=== PATIENT | male | born 1935 | race Two or more races ===

== ENCOUNTER 2024-12-01 04:53 | Inpatient (IN) | payer MEDICARE, OTHER ==
[~2024-12-01] VITALS: Ht 185.4 cm; Wt 84.4 kg
[2024-12-01] VITALS (23 sets, daily range): BP systolic 118–147; BP diastolic 51–78; TEMP 97–98; O2SAT 95–100
[~2024-12-01 04:53] MED LIST: COLC0.6T67 PO
[2024-12-01 05:29] LABS: PLATELET COUNT (AUTO) 304 K/uL (150-450); RED BLOOD CELL COUNT(AUTO) 2.77 MIL/uL (4.5-6.0); RED CELL DISTRIBUTION WIDTH 16.9 % (11.5-15.0); WHITE BLOOD COUNT (AUTO) 13.9 K/uL (4.3-11.0)
[2024-12-01 05:37] LABS: CALCIUM, SERUM 8.6 mg/dL (8.5-10.1); CREATININE 6.8 mg/dL (0.6-1.3); SODIUM SERUM 137.0 mmol/L (136-145); UREA NITROGEN, BLOOD 45.0 mg/dL (7-18)
[2024-12-01 05:44] LABS: ABG BASE EXCESS -0.8 mmol/L (-2.0-3.0); ABG OXYGEN SATURATION 95.1 % (94.0-98.0); ABG PCO2 75.3 mmHg (35.0-48.0); ABG PH 7.193 (7.350-7.450); ABG PO2 100.5 mmHg (83.0-108.0); ABG TOTAL HEMOGLOBIN 9.5 G/dL (13.5-17.5); FLOW, BLOOD GAS 15.00 L/min (0.00-30.00); FRACTIONATED INSPIRED OXYGEN 100.0 %; SITE, ABG LEFT RADIAL
[2024-12-01 05:49] LABS: ASPARTATE AMINOTRANSFERASE 17.0 U/L (15-37); NT-PRO BNP 20495.0 pg/mL (0-125); TOTAL PROTEIN, SERUM 8.2 g/dL (6.4-8.2)
[2024-12-01] MEDS ORDERED: ZOLPIDEM TARTRATE 5 MG TABLET PO PRN (08:00)
[2024-12-01] MEDS ORDERED: MAG HYDROX/AL HYDROX/SIMETH 30 ML UDC PO PRN (08:00)
[2024-12-01] MEDS ORDERED: Z GUARD REMEDY 4 OZ OINT TP PRN (08:00)
[2024-12-01] MEDS ORDERED: MAGNESIUM HYDROXIDE 30 ML UDC PO PRN (08:00)
[2024-12-01] MEDS ORDERED: ONDANSETRON HCL/PF 4 MG/2 ML VIAL IVP PRN (08:00)
[2024-12-01] MEDS ORDERED: ACETAMINOPHEN 325 MG TABLET PO PRN (08:00)
[2024-12-01] MEDS ORDERED: CEFEPIME 1 GM VIAL IM SCH (10:00)
[2024-12-01] MEDS ORDERED: DOSING PER PHARMACY-VANCOMYCIN IV XX PRN (10:00)
[2024-12-01 10:22] LABS: ABG BASE EXCESS 3.5 mmol/L (-2.0-3.0); ABG OXYGEN SATURATION 98.1 % (94.0-98.0); ABG PCO2 50.6 mmHg (35.0-48.0); ABG PH 7.379 (7.350-7.450); ABG PO2 141.7 mmHg (83.0-108.0); ABG TOTAL HEMOGLOBIN 8.3 G/dL (13.5-17.5); SET RATE, BG 18.0; SITE, ABG LEFT RADIAL
[2024-12-01] MEDS: VANCOMYCIN 1 GM in IV D5W 250 ML IV ONE (10:57)
[2024-12-01] MEDS: PANTOPRAZOLE 40 MG VIAL IV SCH (10:57)
[2024-12-01] MEDS ORDERED: XPHOZAH PO (11:34)
[2024-12-01] MEDS ORDERED: LINA290C PO (11:34)
[2024-12-01] MEDS ORDERED: LEVO50TA PO (11:34)
[2024-12-01] MEDS ORDERED: DEXL60CA3 PO (11:34)
[2024-12-01] MEDS ORDERED: AMYL1CAP58 PO (11:34)
[2024-12-01] MEDS ORDERED: ZINC10LO5 PO (11:35)
[2024-12-01] MEDS ORDERED: POLY17PO4 PO (11:35)
[2024-12-01] MEDS ORDERED: TIMO5DRO18 EACHEYE (11:35)
[2024-12-01] MEDS ORDERED: VIT1CAPS9 PO (11:35)
[2024-12-01] MEDS ORDERED: ROSU5TAB PO (11:35)
[2024-12-01] MEDS ORDERED: MAGN400O21 PO (11:35)
[2024-12-01] MEDS ORDERED: FINA5TAB3 PO (11:35)
[2024-12-01] MEDS ORDERED: AMLO-212 PO (11:35)
[2024-12-01] MEDS ORDERED: ESCI10TA PO (11:35)
[2024-12-01] MEDS ORDERED: AMIO200T5 PO (11:35)
[2024-12-01] MEDS ORDERED: FOLI0.8T2 PO (11:35)
[2024-12-01] MEDS ORDERED: SENN-261 PO (11:35)
[2024-12-01] MEDS ORDERED: ICOS1CAP PO (11:35)
[2024-12-01] MEDS ORDERED: FLUT16SP16 BNOSTRILS (11:35)
[2024-12-01] MEDS ORDERED: CHOL200059 PO (11:35)
[2024-12-01] MEDS ORDERED: FAMO20TA8 PO (11:35)
[2024-12-01] MEDS ORDERED: AZIL40TA PO (11:35)
[2024-12-01] MEDS ORDERED: FEBU40TA3 PO (11:35)
[2024-12-01] MEDS ORDERED: ONDA8TAB13 SL (11:35)
[2024-12-01] MEDS ORDERED: AZEL137S7 BNOSTRILS (11:35)
[2024-12-01] MEDS ORDERED: CYCL5.5D EACHEYE (11:35)
[2024-12-01] MEDS: CEFEPIME 1 GM in IV D5W 50 ML IV SCH (12:23)
[2024-12-01] MEDS ORDERED: ONDANSETRON 8 MG SL PRN (16:30)
[2024-12-01] MEDS ORDERED: LIPASE/PROTEASE/AMYLASE 1 EACH CAPSULE.DR PO SCH (16:30)
[2024-12-01] MEDS ORDERED: Medication Not On Formulary EA (Febuxostat 40 MG) PO SCH (16:30)
[2024-12-01] MEDS ORDERED: XPHOZAH PO SCH (16:30)
[2024-12-01] MEDS ORDERED: Medication Not On Formulary EA (Cyclosporine (Restasis Multidose) 1 DROP) EACHEYE SCH (17:00)
[2024-12-01] MEDS: VIT B CMPLX 3/FA/VIT C/BIOTIN 1 TAB TABLET PO SCH (17:10)
[2024-12-01] MEDS: AMIODARONE HCL 200 MG TABLET PO SCH (17:10)
[2024-12-01] MEDS: CHOLECALCIFEROL 1,000 UNIT TABLET (VIT D3) PO SCH (17:10)
[2024-12-01] MEDS: TIMOLOL 0.5% SOLN OPHTH 5 ML BOTTLE EACHEYE SCH (17:15)
[2024-12-01] MEDS: VANCOMYCIN POST DIALYSIS 500MG IV PRN (17:28)
[2024-12-01] MEDS ORDERED: Medication Not On Formulary EA (Icosapent Ethyl (Vascepa) 2 GM) PO SCH (21:00)
[2024-12-01] MEDS: MULTIVITAMIN/LUTEIN/MINERALS 1 TAB PO SCH (21:45)
[2024-12-01] MEDS: ATORVASTATIN 10 MG TABLET PO SCH (21:45)
[2024-12-01] MEDS: LOSARTAN POTASSIUM 50 MG TABLET PO SCH (22:00)
[2024-12-01] MEDS: FINASTERIDE (5 MG) 5 MG TABLET PO SCH (22:00)
[2024-12-01] MEDS: ZINC SULFATE 220 MG CAPSULE PO SCH (22:00)
[2024-12-01] MEDS: COLCHICINE 0.6 MG TABLET PO SCH (22:00)
[2024-12-02] VITALS (32 sets, daily range): BP systolic 109–149; BP diastolic 52–67; TEMP 98–98.5; O2SAT 93–99
[2024-12-02 04:32] LABS: PLATELET COUNT (AUTO) 174 K/uL (150-450); RED BLOOD CELL COUNT(AUTO) 2.34 MIL/uL (4.5-6.0); RED CELL DISTRIBUTION WIDTH 16.6 % (11.5-15.0); WHITE BLOOD COUNT (AUTO) 7.8 K/uL (4.3-11.0)
[2024-12-02 05:02] LABS: CALCIUM, SERUM 9.0 mg/dL (8.5-10.1); CREATININE 5.9 mg/dL (0.6-1.3); PHOSPHORUS 4.2 mg/dL (2.5-4.9); SODIUM SERUM 139 mmol/L (136-145); UREA NITROGEN, BLOOD 35 mg/dL (7-18)
[2024-12-02 05:08] LABS: HEPATITIS B SURFACE AB (QUAL) Non Reactive (.)
[2024-12-02] MEDS ORDERED: LIPASE/PROTEASE/AMYLASE 1 EACH CAPSULE.DR PO SCH (07:30)
[2024-12-02] MEDS: LEVOTHYROXINE SODIUM 50 MCG TABLET PO SCH (07:30)
[2024-12-02] MEDS: ESCITALOPRAM OXALATE (10 MG) 10 MG TABLET PO SCH (07:51)
[2024-12-02] MEDS: AMLODIPINE BESYLATE 5 MG TABLET PO SCH (07:51)
[2024-12-02 08:24] LABS: ABG BASE EXCESS 6.7 mmol/L (-2.0-3.0); ABG OXYGEN SATURATION 93.3 % (94.0-98.0); ABG PCO2 44.7 mmHg (35.0-48.0); ABG PH 7.461 (7.350-7.450); ABG PO2 69.0 mmHg (83.0-108.0); ABG TOTAL HEMOGLOBIN 8.0 G/dL (13.5-17.5); FLOW, BLOOD GAS 30.00 L/min (0.00-30.00); FRACTIONATED INSPIRED OXYGEN 50.0 %; SITE, ABG LEFT RADIAL
[2024-12-02] MEDS: NITROGLYCERIN PACKET 1 GM PACKET TOP SCH (10:30)
[2024-12-02] MEDS: EPOETIN ALFA (10,000 UNIT) 10,000 UNIT/ML VIAL SQ ONE (12:08)
[2024-12-02] MEDS: VANCOMYCIN 1 GM in IV D5W 250 ML IV ONE (17:19)
[2024-12-03] VITALS (22 sets, daily range): BP systolic 100–139; BP diastolic 50–96; TEMP 97.4–98.2; O2SAT 92–100
[2024-12-03 04:33] LABS: PLATELET COUNT (AUTO) 166 K/uL (150-450); RED BLOOD CELL COUNT(AUTO) 2.54 MIL/uL (4.5-6.0); RED CELL DISTRIBUTION WIDTH 16.4 % (11.5-15.0); WHITE BLOOD COUNT (AUTO) 7.3 K/uL (4.3-11.0)
[2024-12-03 05:34] LABS: SODIUM SERUM 138 mmol/L (136-145)
[2024-12-03 05:35] LABS: ASPARTATE AMINOTRANSFERASE 15 U/L (15-37); CALCIUM, SERUM 8.9 mg/dL (8.5-10.1); CREATININE 5.0 mg/dL (0.6-1.3); PHOSPHORUS 3.7 mg/dL (2.5-4.9); UREA NITROGEN, BLOOD 32 mg/dL (7-18)
[2024-12-03 05:36] LABS: TOTAL PROTEIN, SERUM 7.0 g/dL (6.4-8.2)
[2024-12-03] MEDS ORDERED: VANCOMYCIN POST DIALYSIS 500MG IV PRN (06:00)
[2024-12-03] MEDS: PANTOPRAZOLE 40 MG TABLET.DR PO SCH (08:41)
== END 2024-12-03 19:20 | disposition short-term general hospital (02) | DRG 871 ==
LOC: ER 04:55 → TELE IN 08:12 → ICU 08:20
PROVIDERS: ADMIT Student in an Organized Health Care Education/Training Program; ATTEND Nurse Practitioner Family
PROC: 5A09357 Assistance with Respiratory Ventilation, Less than 24 Consecutive Hours, Continuous Positive Airway Pressure (ICD-10-PCS; principal; 2024-12-01)
PROC: 5A1D70Z Performance of Urinary Filtration, Intermittent, Less than 6 Hours Per Day (ICD-10-PCS; 2024-12-01)
DX: A41.9 Sepsis, unspecified organism (principal); G92.8 Other toxic encephalopathy; J81.0 Acute pulmonary edema; J96.01 Acute respiratory failure with hypoxia; J96.02 Acute respiratory failure with hypercapnia; N18.6 End stage renal disease; I50.33 Acute on chronic diastolic (congestive) heart failure; J15.69 Pneumonia due to other Gram-negative bacteria; T80.211A Bloodstream infection due to central venous catheter, initial encounter; I13.2 Hypertensive heart and chronic kidney disease with heart failure and with stage 5 chronic kidney disease, or end stage renal disease; C90.01 Multiple myeloma in remission; Z66 Do not resuscitate; Z87.891 Personal history of nicotine dependence; Z85.51 Personal history of malignant neoplasm of bladder; Z88.2 Allergy status to sulfonamides; Z99.2 Dependence on renal dialysis; J44.9 Chronic obstructive pulmonary disease, unspecified; D64.9 Anemia, unspecified; Y84.8 Other medical procedures as the cause of abnormal reaction of the patient, or of later complication, without mention of misadventure at the time of the procedure; Y92.009 Unspecified place in unspecified non-institutional (private) residence as the place of occurrence of the external cause
CPT/HCPCS: 36415; 36600; 71045-TC; 80048-TC; 80053-TC; 80202-TC; 82803-TC; 83735-TC; 83880; 84100-TC; 84484-TC; 85025-TC; 86706; 87040-TC; 87081-TC; 87340; 90935-TC; 92526; 92611; 93307-TC; 94660; 94799-TC; A4223; G0378; J0692; J0885; J2470; J3373; J7030; J7050; J7060